=== PATIENT | female | born 1940 | race Asian ===

== ENCOUNTER → 2020-02-16 | Outpatient (CLI) | payer BC, MEDICARE ==
--- NOTE | 2020-02-16 14:10 | REPPI ---
INDICATION: I10 ESSENTIAL HYPERTENSTION COMPARISON: None. TECHNIQUE: PA and lateral. FINDINGS: The mediastinum and cardiac silhouette are normal. The lung james suggest chronic appearing changes without acute consolidation, effusion, or pneumothorax. The skeletal structures are intact and normal. IMPRESSION: No focal consolidation or effusion. Chronic appearing changes suggested. <Electronically signed by Lasha Rinaldi > 02/16/20 [id number]
== END ==
LOC: M PLAIMG 13:34
PROVIDERS: ATTEND Internal Medicine Cardiovascular Disease
DX: I10 Essential (primary) hypertension (principal)

== ENCOUNTER → 2020-11-29 | Outpatient (REF) | payer MEDICARE, OTHER ==
[2020-11-29 18:40] LABS: MAGNESIUM LEVEL 2.3 MG/DL (1.8-2.4); PERCENT SATURATION 21.8 % (13.2-45.0)
[2020-11-29 18:47] LABS: FOLATE 10.6 NG/ML
== END ==
LOC: M LAB REF 17:44
PROVIDERS: ATTEND Internal Medicine Nephrology
DX: D64.9 Anemia, unspecified (principal); N18.32 Chronic kidney disease, stage 3b